=== PATIENT | male | born 1975 | race American Indian/Alaskan Native ===

== ENCOUNTER 2019-12-24 02:22 | Emergency (ER) | payer OTHER ==
[2019-12-24 02:25] VITALS: BP 166/117
--- NOTE | 2019-12-24 02:36 | PCM.EKG ---
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
[2019-12-24] MEDS ORDERED: ASPIRIN ONE ×2 (02:38→02:39)
--- NOTE | 2019-12-24 02:39 | ER.PDOC ---
General Chief Complaint: Requesting Medical Care Stated Complaint: PRESSURE IN CHEST Time seen by MD: 02:34 Source: patient Exam Limitations: no limitations History of Present Illness Initial Comments pt c/o intermittent chest pressure over past 14 hours; first 2 episodes lasted 5 minutes; this episode constant for > 2 hours; discomfort described as intense pressure radiating up to left shoulder; denies nausea or SOB Timing/Duration: 1-3 hours Severity/Quality: severe, aching, pressure Radiation: shoulders (left) Activities at Onset: none Prior CP/Workup: No Prior Chest Pain, No Prior Cardiac Workup Associated Symptoms: other (multiple bowel movements in the past hour, non- diarrheal) Past Medical History Medical History: hypertension Family History Significant Family History: heart disease (grandfather had 7 MIs, the first in his 50's) Social History Smoking: non-smoker Alcohol Use: none Drug Use: none Constitutional: no symptoms reported EENTM: no symptoms reported Respiratory: no symptoms reported Cardiovascular: see HPI, chest pain Gastrointestinal: see HPI Musculoskeletal: no symptoms reported Skin: no symptoms reported Physical Exam General Appearance: No Apparent Distress, WD/WN, Anxious Respiratory: chest non-tender, lungs clear, normal breath sounds, no respiratory distress, no accessory muscle use Cardiovascular: Regular Rate, Rhythm Gastrointestinal: Normal Bowel Sounds Extremities: Normal Inspection, No Pedal Edema Neurologic/Psychiatric: Alert, Normal Mood/Affect, Oriented x 3 Skin: Normal Color, Warm/Dry Lymphatic: No Adenopathy Results/Orders Results/Orders Orders - RAUDEL CERRATO DO Cbc With Auto Diff (12/24/19 02:33) Comprehensive Metabolic Panel (12/24/19 02:33) Creatine Kinase (12/24/19 02:33) Creatine Kinase Mb (12/24/19 02:33) Troponin I (12/24/19 02:33) Probnp B-Type Director Plans (12/24/19 02:33) PT (12/24/19 02:33) Partial Thromboplastin Time. (12/24/19 02:33) Helicobacter Pylori (12/24/19 02:33) Xr Chest 1v (12/24/19 02:33) Ekg-Routine (12/24/19 02:33) Aspirin (Aspirin) (12/24/19 03:00) Saline Lock (12/24/19 02:33) Progress Progress maalox + viscous lidocaine relieved symptoms; all cardiac markers returned normal EKG/XRAY/CT/US EKG: NSR, no ST T wave changes XRAY: chest (normal) Departure Time of Disposition: 04:07 Disposition: 01 HOME, SELF-CARE Impression: Primary Impression: Chest pain in adult Condition: Improved Patient Instructions: Chest Pain (Nonspecific) Referrals: PCP,UNKNOWN (PCP) PRIMARY CARE PROVIDER Additional Instructions: At this time, your chest pain seems to be more related to gastrointestinal issues. That being said, nothing in medicine is 100%--if your chest pain returns/worsens, if you have nausea with chest pain, difficulty breathing or any other concerns, return to ER for repeat evaluation. Follow up with your doctor next week for further evaluation. Duration or Time Spent with Pa: 30 minutes RAUDEL CERRATO DO Dec 24, 2019 02:39
[2019-12-24 02:43] LABS: BASOPHIL # 0.1 10^3/uL (0.0-0.1); BASOPHIL % 0.8 % (0.0-0.2); EOSINOPHIL # 0.2 10^3/uL (0.0-0.2); EOSINOPHIL % 3.1 % (0.0-5.0); LYMPHOCYTES # 2.12 10^3/uL1 (1.0-4.8); MONOCYTES # 0.8 10^3/uL (0.3-0.8); MONOCYTES % 9.5 % (5.0-12.0); NEUTROPHIL # 4.7 10^3/uL (1.8-7.7); NEUTROPHILS % 59.3 % (41.0-85.0); RED CELL DISTRIBUTION WIDTH 12.5 % (11.5-14.5)
[2019-12-24] MEDS ORDERED: ASPIRIN PO PRN (03:00)
--- NOTE | 2019-12-24 03:03 | DIREP ---
PROCEDURE:CHEST 1 VIEW COMPARISON:None. INDICATIONS:chest pain FINDINGS: LUNGS/PLEURA:No significant pulmonary parenchymal abnormalities. No effusions. VASCULATURE:Normal. Unremarkable pulmonary vasculature. CARDIAC:Normal. No cardiac silhouette abnormality or cardiomegaly. MEDIASTINUM:Normal. No visible mass or adenopathy. BONES:Normal. No fracture or visible bony lesion. OTHER:Negative. CONCLUSION:No acute cardiopulmonary abnormality. Dictated by: Facundo Mcarthur M.D. on 12/24/2019 at 03:02 AM
[2019-12-24 03:06] LABS: ALANINE AMINOTRANSFERASE(ML) 47 U/L (12-78); ALKALINE PHOSPHATASE 88 U/L (50-136); ASPARTATE AMINO TRANSFERASE 25 U/L (0-35); CALCIUM 8.5 mg/dL (8.4-10.5); CARBON DIOXIDE 29.9 mmol/L (20.0-32); GLUCOSE 123 mg/dL (70-110)
[2019-12-24] MEDS ORDERED: MYLANTA ONE (03:35)
[2019-12-24] MEDS ORDERED: LIDOCAINE VISCOUS ONE (03:35)
[2019-12-24] MEDS ORDERED: MYLANTA PO STA (04:02)
[2019-12-24] MEDS ORDERED: LIDOCAINE VISCOUS MM STA (04:02)
== END 2019-12-24 04:18 | disposition home or self-care (01) ==
LOC: ER 02:22
DX: R07.89 Other chest pain (principal); I10 Essential (primary) hypertension; Z82.49 Family history of ischemic heart disease and other diseases of the circulatory system
CPT/HCPCS: 36415; 71045; 80053; 82550; 82553; 83880; 84484; 85025; 85610; 85730; 86677; 93005; 99285; J3490